=== PATIENT | male | born 1940 | race Caucasian/White ===

== ENCOUNTER → 2016-07-31 | Outpatient (CLI) | payer MEDICARE, BC | END | disposition home or self-care (01) | LOC: MW.CHUR 09:44 | PROVIDERS: ATTEND Urology | DX: N40.0 Benign prostatic hyperplasia without lower urinary tract symptoms (principal) | CPT/HCPCS: 36415; 84153; G0463 ==

== ENCOUNTER 2019-10-27 06:57 | Day surgery (SDC) | payer MEDICARE, BC ==
[2019-10-27] MEDS ORDERED: Lactated Ringers 1,000 ML IV SCH ×2 (07:00→09:15)
[2019-10-27] MEDS ORDERED: Propofol 200 MG/20 ML SDV ONE (07:01)
[2019-10-27] MEDS ORDERED: Midazolam 1 MG/ML 2 ML SDV ONE (07:01)
[2019-10-27] MEDS ORDERED: Lidocaine 2% 5 ML SDV ONE (07:08)
--- NOTE | 2019-10-27 07:38 | PCM.PREANE ---
Preanesthetic Assessment - Anesthesia/Transfusion/Family Hx Anesthesia History: Prior Anesthesia Without Reaction Other Type of Anesthesia Reaction Comment: Denies any known problem in past, no known family hx: problems Family History of Anesthesia Reaction: No Transfusion History: No Prior Transfusion(s) Intubation History: Unknown - Review of Systems General: No Symptoms Pulmonary: No Symptoms Cardiovascular: No Symptoms Gastrointestinal: No Symptoms, Other (h/o colon polyps) Neurological: No Symptoms Other: Reports: None - Physical Assessment NPO Status Date: 10/26/19 NPO Status Time: 23:00 Vital Signs: Last Vital Signs Temp 36.5 C 10/27/19 07:12 Pulse 84 10/27/19 07:12 Resp 16 10/27/19 07:12 BP 132/75 10/27/19 07:12 Pulse Ox 96 10/27/19 07:12 Height: 5 ft 8 in Weight: 108.862 kg ASA Class: 3 Mental Status: Alert & Oriented x3 Airway Class: Mallampati = 2 Dentition: Reports: Normal Dentition Thyro-Mental Finger Breadths: 3 Mouth Opening Finger Breadths: 3 ROM/Head Extension: Limited/Partial Lungs: Clear to Auscultation, Normal Respiratory Effort Cardiovascular: Regular Rate, Regular Rhythm - Allergies Allergies/Adverse Reactions: Allergies Allergy/AdvReac Type Severity Reaction Status Date / Time ketorolac [From Toradol] Allergy Anxiety Verified 10/22/19 11:05 - Blood Blood Available: No - Anesthesia Plan Pre-Op Medication Ordered: None - Acknowledgements Anesthesia Type Planned: MAC Pt an Appropriate Candidate for the Planned Anesthesia: Yes Alternatives and Risks of Anesthesia Discussed w Pt/Guardian: Yes Pt/Guardian Understands and Agrees with Anesthesia Plan: Yes PreAnesthesia Questionnaire HEENT History: Reports: Cataract, Hard of Hearing Other HEENT History: wears glasses, has hearing aides but doesn't wear them Cardiovascular History: Reports: High Cholesterol, Hypertension Gastrointestinal History: Reports: Colon Polyp, Diverticulosis, Other (See Below) Other Gastrointestinal History: occasional heartburn- takes OTC pepsid Genitourinary History: Reports: BPH Musculoskeletal History: Reports: Osteoarthritis Endocrine/Metabolic History: Reports: Diabetes, Type II, Obesity/BMI 30+ (BMI 36.5) - Past Surgical History Head Surgeries/Procedures: Reports: None HEENT Surgical History: Reports: Cataract Surgery GI Surgical History: Reports: Colonoscopy (x2, '13 and ), Hernia, Inguinal Male Surgical History: Reports: Vasectomy Neurological Surgical History: Reports: C-Spine, Discectomy Other Neurological Surgeries/Procedures: no metal hardware Musculoskeletal Surgical History: Reports: Other (See Below) Other Musculoskeletal Surgeries/Procedures:: hx of RTCR - SUBSTANCE USE Smoking Status *Q: Former Smoker Tobacco Use Within Last Twelve Months: No Recreational Drug Use History: No - HOME MEDS Home Medications: Home Meds Aspirin [Halfprin] 81 mg PO DAILY 09/15/14 [History] Fish Oil/[place]-3 Fatty Acids [Fish Oil 1,000 MG] 1 gm PO DAILY 09/15/14 [History] Gemfibrozil 600 mg PO BID 09/15/14 [History] Losartan Potassium 50 mg PO QAM 09/15/14 [History] metFORMIN HCl [Metformin HCl] 1,000 mg PO BIDM 09/15/14 [History] Empagliflozin [Jardiance] 25 mg PO ACBREAKFAST 10/22/19 [History] - CURRENT (IN HOUSE) MEDS Current Meds: Current Medications Lactated Ringer's (Ringers, Lactated) 1,000 mls @ 125 mls/hr IV ASDIRECTED LADONNA Last Admin: 10/27/19 07:25 Dose: 125 mls/hr Documented by: Discontinued Medications Lidocaine (Xylocaine-Mpf 2%) Confirm Administered Dose 5 ml .ROUTE .STK-MED ONE Stop: 10/27/19 07:09 Midazolam HCl (Versed 1 Mg/Ml) Confirm Administered Dose 2 mg .ROUTE .STK-MED ONE Stop: 10/27/19 07:02 Propofol (Diprivan 20 Ml) Confirm Administered Dose 600 mg .ROUTE .STK-MED ONE Stop: 10/27/19 07:02
--- NOTE | 2019-10-27 09:16 | PCM.OPNOTE ---
- General Post-Op/Procedure Note Date of Surgery/Procedure: 10/27/19 Operative Procedure(s): Colonoscopy Pre Op Diagnosis: History of colon polyps. History of diverticulosis. Post-Op Diagnosis: Mild sigmoid diverticulosis Anesthesia Technique: MAC (ASA II) Primary Surgeon: Adalberto Mendoza Hand Binder Cutter: Abimbola Corona Condition: Good Free Text/Narrative:: DICTATION [id number] CPT CODE 26753
--- NOTE | 2019-10-27 09:38 | PCM.POSTAN ---
POST ANESTHESIA ASSESSMENT - MENTAL STATUS Mental Status: Alert, Oriented - VITAL SIGNS Vital Signs: Last Vital Signs Temp 36.5 C 10/27/19 07:12 Pulse 70 10/27/19 09:24 Resp 8 L 10/27/19 09:24 BP 120/53 L 10/27/19 09:24 Pulse Ox 94 L 10/27/19 09:24 - RESPIRATORY Respiratory Status: Respiratory Rate WNL, Airway Patent, O2 Saturation Stable - CARDIOVASCULAR CV Status: Pulse Rate WNL, Blood Pressure Stable - GASTROINTESTINAL GI Status: No Symptoms - PAIN Pain Score: 0 - POST OP HYDRATION Hydration Status: Adequate & Stable - OBSERVATIONS Free Text/Narrative:: No anesthesia problems
[2019-10-27 09:39] VITALS: BP 115/68; PULSE 78
--- NOTE | 2019-10-27 09:48 | PCM48HPAN ---
Post Anesthesia Note - EVALUATION WITHIN 48HRS OF ANESTHETIC Vital Signs in Normal Range: Yes Patient Participated in Evaluation: Yes Respiratory Function Stable: Yes Airway Patent: Yes Cardiovascular Function Stable: Yes Hydration Status Stable: Yes Pain Control Satisfactory: Yes Nausea and Vomiting Control Satisfactory: Yes Mental Status Recovered: Yes Vital Signs: Last Vital Signs Temp 36.4 C 10/27/19 09:30 Pulse 78 10/27/19 09:30 Resp 78 H 10/27/19 09:30 BP 115/68 10/27/19 09:30 Pulse Ox 94 L 10/27/19 09:30 - COMMENTS/OBSERVATIONS Free Text/Narrative:: No anesthesia problems
--- NOTE | 2019-10-27 17:01 | OR ---
SURGEON: Adalberto Mendoza M.D. DATE OF PROCEDURE: 10/27/2019 OPERATION PERFORMED: Colonoscopy. PRIMARY SURGEON: Adalberto Mendoza MD SCREW MACHINE TENDER: Lap Welder: FREDDY Beasley student. ANESTHESIA: MAC. ASA CLASSIFICATION: II. PREOPERATIVE DIAGNOSES: 1. Personal history of colon polyps. 2. History of diverticulosis. POSTOPERATIVE DIAGNOSIS: Sigmoid diverticulosis. DESCRIPTION OF PROCEDURE: The patient was taken to the endoscopy room and positioned on the endoscopy table in the left lateral decubitus position. Time-out was called for appropriate identification of the patient and procedure. Monitored anesthesia care was provided. The colonoscope was inserted into the rectum and advanced with minimal difficulty to the cecum. The cecum was identified by internal landmarks. The colonoscope was then retroflexed to visualize the ascending colon from below. The scope was then straightened and slowly withdrawn. The cecum, ascending colon, hepatic flexure, transverse colon, splenic flexure, descending colon, sigmoid colon, and rectum were very well visualized. No tumors or polyps were seen and there were no acute inflammatory changes. Minimal diverticular changes were noted on examination today. There was no evidence of acute diverticulitis. The colonoscope was then withdrawn to the rectum and retroflexed to visualize the anal orifice from above. Again, no tumors or polyps were seen and there were no acute hemorrhoidal changes. There were some chronic hemorrhoidal changes noted, but no bleeding. The colonoscope was then straightened, the rectum aspirated, and the colonoscope removed. The patient tolerated the procedure well and was taken to recovery room in stable condition. QAMAR / ZULEMA /[id number]
== END 2019-10-27 10:00 | disposition home or self-care (01) ==
LOC: MW.SDS 06:57
PROVIDERS: ATTEND Surgery
DX: Z12.11 Encounter for screening for malignant neoplasm of colon (principal); K57.30 Diverticulosis of large intestine without perforation or abscess without bleeding; K64.9 Unspecified hemorrhoids; M19.90 Unspecified osteoarthritis, unspecified site; N40.0 Benign prostatic hyperplasia without lower urinary tract symptoms; E78.00 Pure hypercholesterolemia, unspecified; E11.9 Type 2 diabetes mellitus without complications; E78.5 Hyperlipidemia, unspecified; I10 Essential (primary) hypertension; Z79.82 Long term (current) use of aspirin; Z86.010 Personal history of colon polyps; Z79.84 Long term (current) use of oral hypoglycemic drugs; Z79.899 Other long term (current) drug therapy; Z87.891 Personal history of nicotine dependence; Z88.8 Allergy status to other drugs, medicaments and biological substances
CPT/HCPCS: G0105; J2001; J2250; J2704; J7120; 00812

== ENCOUNTER 2023-02-04 22:06 | Emergency (ER) | payer MEDICARE, BC ==
[2023-02-04 22:31] LABS: BASOPHILS ABSOLUTE AUTO 0.05 K/uL (0.00-0.20); BASOPHILS PERCENT AUTO 0.9 % (0.0-1.0); EOSINOPHILS ABSOLUTE AUTO 0.23 K/uL (0.00-0.45); EOSINOPHILS PERCENT AUTO 4.3 % (0.0-6.0); HEMATOCRIT 39.6 % (42.0-52.0); HEMOGLOBIN 13.1 g/dL (14.0-18.0); IMMATURE GRAN ABSOLUTE AUTO 0.02 K/uL (0.00-0.05); IMMATURE GRAN PERCENT AUTO 0.4 % (0.0-0.4); LYMPHOCYTES ABSOLUTE AUTO 2.02 K/uL (1.00-4.80); LYMPHOCYTES PERCENT AUTO 38.2 % (24.0-44.0); MEAN CORPUSCULAR HGB CONC 33.1 g/dL (32.0-36.0); MEAN CORPUSCULAR VOLUME 90.6 fL (83.0-99.0); MEAN PLATELET VOLUME 9.9 fL (9.4-12.4); MONOCYTES ABSOLUTE AUTO 0.53 K/uL (0.00-0.80); NEUTROPHILS ABSOLUTE AUTO 2.44 K/uL (1.80-7.70); NEUTROPHILS PERCENT AUTO 46.2 % (41.0-71.0); PLATELET COUNT,PLT 201 K/uL (150-400); RED BLOOD CELL COUNT 4.37 M/uL (4.52-5.90); WHITE BLOOD CELL COUNT,WBC 5.29 K/uL (3.9-11.3)
[2023-02-04 22:58] LABS: ALBUMIN 3.7 g/dL (3.4-5.0); BILIRUBIN TOTAL 0.2 mg/dL (0.2-1.0); CALCIUM 9.5 mg/dL (8.5-10.1); CARBON DIOXIDE,CO2 23.7 mmol/L (21.0-32.0); POTASSIUM,K 3.6 mmol/L (3.5-5.1); PROTEIN TOTAL,TP 7.5 g/dL (6.4-8.2)
[2023-02-04 22:59] LABS: CORONAVIRUS COVID-19 NAA NEGATIVE (NEGATIVE); INFLUENZA A NAA NEGATIVE (NEGATIVE); INFLUENZA B NAA NEGATIVE (NEGATIVE)
[2023-02-04] MEDS ORDERED: Heparin Sodium 5,000 Units/ML Vial IVPUSH PRN (23:15)
[2023-02-04] MEDS ORDERED: Heparin Sodium/0.45% NaCl 500 ML IV SCH (23:15)
[2023-02-04] MEDS ORDERED: Aspirin 81 MG Tab.Chew PO ONE (23:17)
[2023-02-05 00:45] VITALS: PULSE 84
[2023-02-05 04:08] VITALS: BP 146/69
== END 2023-02-05 03:34 ==
LOC: MW.ED 22:06
DX: I21.4 Non-ST elevation (NSTEMI) myocardial infarction (principal); I10 Essential (primary) hypertension; E11.9 Type 2 diabetes mellitus without complications; E66.9 Obesity, unspecified; Z68.34 Body mass index [BMI] 34.0-34.9, adult; Z79.82 Long term (current) use of aspirin; Z79.84 Long term (current) use of oral hypoglycemic drugs; Z79.899 Other long term (current) drug therapy; Z88.5 Allergy status to narcotic agent; Z20.822 Contact with and (suspected) exposure to COVID-19
CPT/HCPCS: 0240U; 36415; 71046; 80053; 84484; 85025; 85730; 93005; 96365; 96366; 99285; A9270; J1644; 93010; 99284